=== PATIENT | male | born 1995 | race Caucasian/White ===

== ENCOUNTER 2023-11-09 19:19 | Emergency (ER) | payer SELFPAY ==
[~2023-11-09] VITALS: Ht 175.3 cm; Wt 75.0 kg
[2023-11-09 19:38] VITALS: BP 129/80; PULSE 115; RESP 20; O2SAT 98
[2023-11-09] MEDS ORDERED: MORPHINE SULFATE 4 MG/ML SYR/VIAL IV ONE (20:30)
[2023-11-09] MEDS ORDERED: SODIUM CHLORIDE 0.9% 1,000 ML IV ONE (20:30)
[2023-11-09] MEDS ORDERED: SODIUM CHLORIDE 0.9% 1,000 ML IVB ONE (20:30)
[2023-11-09] MEDS ORDERED: ONDANSETRON HCL 4 MG/2 ML VIAL IV ONE (20:30)
[2023-11-09 21:32] LABS: Chloride 99 mmol/L (98-107); Potassium 2.8 mmol/L (3.5-5.1); Sodium 130 mmol/L (136-145)
[2023-11-09 21:33] LABS: Anion Gap 14 (5-15); Carbon Dioxide 17 mmol/L (20-30)
[2023-11-09 21:34] LABS: Calcium 10.1 mg/dL (8.7-10.4)
[2023-11-09 21:39] LABS: BUN/Creatinine Ratio 13.2 (10.0-20.0); Blood Urea Nitrogen 19 mg/dL (9-23); Glucose 160 mg/dL (74-106)
[2023-11-09] MEDS ORDERED: metroNIDAZOLE 500MG/100ML 100 ML IV ONE (21:45)
[2023-11-09 21:59] LABS: Basophils # (auto) 0 10 ^3/uL (0-0.2); Basophils % (auto) 0.2 % (0.0-2.0); Red Cell Distribution Width 12.9 % (11.8-14.3)
[2023-11-09 22:04] LABS: Eosinophils # (auto) 0.4 10 ^3/uL (0-0.8); Eosinophils % (auto) 1.8 % (0.0-7.0); Hemoglobin 20.4 g/dL (13.5-17.5); Lymphocytes # (auto) 2.3 10 ^3/uL (0.4-5.4); Lymphocytes % (auto) 11.6 % (10.0-50.0); Mean Corpuscular Hemoglobin 29.6 pg (28.0-32.0); Mean Corpuscular Hgb Conc. 34.3 g/dL (32.0-36.0); Mean Corpuscular Volume 86.2 fL (80.0-100.0); Monocytes # (auto) 2.2 10 ^3/uL (0-1.3); Neutrophils % (auto) 75.4 % (37.0-80.0); Red Blood Cells 6.88 10^6/uL (4.5-5.90); White Blood Cell 19.9 10^3/uL (4.4-10.8)
[2023-11-09 22:07] LABS: Hematocrit 59.3 % (41.0-53.0)
== END 2023-11-10 01:14 | disposition left against medical advice (07) ==
LOC: EDBD 19:19 → ER 19:19
DX: K52.9 Noninfective gastroenteritis and colitis, unspecified (principal)
CPT/HCPCS: 36415; 80048; 85025